=== PATIENT | female | born 2000 | race Caucasian/White ===

== ENCOUNTER 2025-08-16 09:11 | Emergency (ER) | payer OTHER, SELFPAY ==
[2025-08-16 09:27] VITALS: BP 114/77; PULSE 93; RESP 16; TEMP 36.7; O2SAT 100
--- NOTE | 2025-08-16 09:38 | ED_ITS ---
HPI - Nausea/Vomiting/Diarrhea General Chief complaint: Nausea/Vomiting/Diarrhea Stated complaint: Fever, congestion, V/D Time Seen by Provider: 08/16/25 09:38 Source: patient, RN notes reviewed and old records reviewed Mode of arrival: ambulatory Limitations: no limitations History of Present Illness HPI Narrative: 24 year old female who presents to [facility] care with complaints of Related Data Home Medications ?Medication ?Instructions ?Recorded ?Confirmed ?Last Taken ?Type escitalopram oxalate .ROUTE 08/16/25 Unknown His tory insulin pump cart,auto,BT,G6/7 08/16/25 08/16/25 Unkn own History (Omnipod 5 G6-G7 Pods (Gen 5) subcutaneous cartridge) Allergies Allergy/AdvReac Type Severity Reaction Status Date / Time acetaminophen (From Tylenol) Allergy Unknown Unknown Verified 08/16/25 09:32 fentanyl Allergy Unknown Unknown Verified 08/16/25 09:32 latex Allergy Unknown Unknown Verified 08/16/25 09:32 Course Vital Signs Vital signs: Vital Signs Temperature 36.7 C 08/16/25 09:27 Pulse Rate 93 08/16/25 09:27 Respiratory Rate 16 08/16/25 09:27 Blood Pressure 114/77 08/16/25 09:27 Pulse Oximetry 100 08/16/25 09:27 Oxygen Delivery Room Air 08/16/25 09:27 Temperature 36.7 C 08/16/25 09:27 Pulse Rate 93 08/16/25 09:27 Respiratory Rate 16 08/16/25 09:27 Blood Pressure 114/77 08/16/25 09:27 Pulse Oximetry 100 08/16/25 09:27 Oxygen Delivery Room Air 08/16/25 09:27 Discharge Plan Discharge Patient Language: Central African Prescriptions: No Action (DME) Omnipod 5 G6-G7 Pods (Gen 5) Cartridge SUBCUT escitalopram oxalate [Lexapro] .ROUTE Follow-up/Referrals: UNKNOWN,DOCTOR [Primary Care Provider]
--- NOTE | 2025-08-16 09:41 | ED_ITS ---
HPI - Nausea/Vomiting/Diarrhea General Chief complaint: Nausea/Vomiting/Diarrhea Stated complaint: Fever, congestion, V/D Time Seen by Provider: 08/16/25 09:38 Source: patient, RN notes reviewed and old records reviewed Mode of arrival: ambulatory Limitations: no limitations History of Present Illness HPI Narrative: 24 year old female who presents to [facility] care with complaints of nausea, vomiting, and diarrhea yesterday and feeling congested with some low grade fevers. Patient reports that she had her flu shot 2 days ago. She has been taking Advil cold and flu. She reports that her highest temp noted has been 100.6F. Patient is Type 1 diabetic and is on insulin pump and has continuous monitor for glucose readings, denies any low or high readings. Patient reports no abdominal pain except for crampy feeling when has diarrhea. Patient also has Hemorrhagic Hepatocellular Adenometrosis (HCS) which has required 3 liver surgeries in the past.Patient reports that she has been able to keep some water down today no food. MD elicited complaint: vomiting and diarrhea Pertinent past history: other (Type ! diabetic, (HCS)) Onset (ago): day(s) (since yesterday) Description of vomiting: food contents and watery Description of diarrhea: watery Associated nausea: Yes Associated abdominal pain: No Treatment prior to arrival: other (advil cold and flu) Related Data Home Medications ?Medication ?Instructions ?Recorded ?Confirmed ?Last Taken ?Type escitalopram oxalate .ROUTE 08/16/25 Unknown His tory insulin pump cart,auto,BT,G6/7 08/16/25 08/16/25 Unkn own History (Omnipod 5 G6-G7 Pods (Gen 5) subcutaneous cartridge) Allergies Allergy/AdvReac Type Severity Reaction Status Date / Time acetaminophen (From Tylenol) Allergy Unknown Unknown Verified 08/16/25 09:32 fentanyl Allergy Unknown Unknown Verified 08/16/25 09:32 latex Allergy Unknown Unknown Verified 08/16/25 09:32 Review of Systems Review of Systems: CONSTITUTIONAL: Reports low grade fever, chills, or sweats. EYES: Denies visual changes, redness, or discharge. ENT: reports rhinorrhea, congestion, no sore throat, or otalgia. CARDIOVASCULAR: Denies chest pain, palpitations, or edema. RESPIRATORY: Denies cough or dyspnea. GASTROINTESTINAL: Denies abdominal pain,positive for nausea, vomiting, or diarrhea. GENITOURINARY: Denies dysuria or hematuria. SKIN: Denies rash or itching. MUSCULOSKELETAL: Denies back pain, joint pain, or myalgia. NEUROLOGIC: Denies headache, numbness, or weakness. PSYCHIATRIC: Reports history of anxiety or depression. All systems reviewed & are unremarkable except as noted in HPI and below PMFSH Past Medical History Medical History (Updated 08/17/25 @ 07:45 by Sherice Boland APRN) Liver disease Hemorrhagic Hepatocellular Adenometrosis Endometriosis Anxiety and depression Diabetes mellitus Surgical History Surgical History (Updated 08/17/25 @ 07:46 by Sherice Boland APRN) History of surgery of liver HCS has had 3 liver surgeries H/O: hysterectomy Social History Social History (Updated 08/17/25 @ 07:42 by Sherice Boland APRN) Alcohol intake: never Substance use: never Living arrangements: with family Additional occupation/education comments: 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 There is no relevant family history pertinent to the presenting complaint Exam Narrative: GENERAL: ill-appearing, well-nourished, and in no acute distress. HEAD: Normocephalic, atraumatic. EYES: PERRLA and EOMI. ENT: Nares clear, clear rhinorrhea no epistaxis. Mucous membranes moist.TM normal with no redness, Throat pink with no exudate or swelling, post nasal drainage noted NECK: Supple. no lymphadenopathy CHEST: Clear to auscultation. No respiratory distress.no acute cough noted SAO2 100% on room air HEART: Regular rate and rhythm. No murmur heard. Normal peripheral pulses. ABDOMEN: Soft, nontender to palpation, no McBurney point tenderness, nondistended, hyper active bowel sounds. EXTREMITIES: Normal range of motion. No edema. SKIN: Warm, dry, no rash. NEURO: No focal deficits. Alert and oriented x3. Course Course Emergency Course: Patient is aware of diagnosis, understands and agrees to treatment plan.? Anticipatory guidance given.? Patient agrees to follow-up as directed and is aware of reasons to seek care at the emergency department. Portions of this record may have been created with voice recognition software Level of Care: [facility] Visit Vital Signs Vital signs: Vital Signs Temperature 36.7 C 08/16/25 09:27 Pulse Rate 93 08/16/25 09:27 Respiratory Rate 16 08/16/25 09:27 Blood Pressure 114/77 08/16/25 09:27 Pulse Oximetry 100 08/16/25 09:27 Oxygen Delivery Room Air 08/16/25 09:27 Temperature 36.7 C 08/16/25 09:27 Pulse Rate 93 08/16/25 09:27 Respiratory Rate 16 08/16/25 09:27 Blood Pressure 114/77 08/16/25 09:27 Pulse Oximetry 100 08/16/25 09:27 Oxygen Delivery Room Air 08/16/25 09:27 Reviewed MDM - Nausea/Vomiting/Diarrhea Differential Diagnosis Differential diagnosis: Likely gastroenteritis, dehydration and other (URI, nausea vomiting and diarrhea) Medical Records Attestation: I reviewed the patient's medical records. Lab Data Attestation: I reviewed the patient's lab results. Lab results narrative: Covid antigen negative, Influenza A&B negative Labs: Lab Results 08/16/25 Range/Units 09:45 POC Influenza A Ag Negative (Negative) POC Influenza B Ag Negative (Negative) POC SARS CoV-2 Ag Negative (Negative) reviewed Critical Care Time Critical Care Time Critical Care Time: No Discharge Plan Discharge Clinical Impression: Gastroenteritis Patient Disposition: Home Condition: Stable Instructions: Antibiotic Form, Gastroenteritis (ED) Additional Instructions: Clear liquids for the next 8-10 hours, then advance to a bland diet as tolerated A bland diet can consist of--BRAT diet which is bananas, rice, applesauce, and toast Avoid fried, greasy, fatty, fried foods Avoid caffeine, nicotine, and alcohol Return to your regular diet in the next 3-4 days Medication as directed for nausea and vomiting Sometimes ibuprofen/Aleve can cause increased stomach upset Jveg-dvk-raunpny Imodium if develop diarrhea Follow-up with her PCP if continued problems or uncontrolled pain If your symptoms persist, change or worsen significantly before you can contact your personal physician then please, without delay, go to the emergency department for further evaluation. Follow-up with PCP in 7-10 days or sooner if needed if you develop increased abdominal pain, increased nausea and vomiting, or concerns for dehydration go directly to the ER. Patient Language: Serbian Prescriptions: New ondansetron 4 mg tablet,disintegrating 4 mg PO Q6H PRN (Reason: nausea and vomiting) Qty: 20 0RF No Action (DME) Omnipod 5 G6-G7 Pods (Gen 5) Cartridge SUBCUT escitalopram oxalate [Lexapro] .ROUTE Follow-up/Referrals: UNKNOWN,DOCTOR [Primary Care Provider] Stand Alone Forms: Work/School Release IP Time of Disposition: 09:58 Quality Dena Coma Scale Eyes: Open Verbal: Oriented and Alert Motor: Follows Commands Dena Coma Total Score: 15
[2025-08-16 09:46] LABS: EDCOVIDSCREEN Negative (Negative); EDINFLUASCREEN Negative (Negative); EDINFLUBSCREEN Negative (Negative)
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
--- OUTSIDE RECORDS SUMMARY | 2025-08-16 10:12 | XMS_ITS | Encounter Summary ---
Author Organization [facility] Address [address] [place] [address] Care Team Providers Care Printing Assistant Name Role Phone Herlinda Simpson MD Primary Care Provider [phone] Reason for Visit * Reason Onset Date Comments MEDICATION REFILL 12/29/2012 Encounter Details Date Type Department Care Team (Late st Contact Info) Description 12/29/2012 Refill [facility] Pediatrics - Diabetes Mgmt [address] [place] [id number] Yasmany Vyas MD [address] [place] [id number] MEDICATION REFILL Social History Tobacco Use Types Packs/Day Years Used Date Smoking Tobacco: Never Comments No Sex and Gender Information Value Date Recorded Sex Assigned at Not on file Legal Sex Female 11:58 AM COLLAR POINTER Gender Identity Not on file Sexual Orientation Not on file documented as of this encounter Plan of Treatment Not on file documented as of this encounter Visit Diagnoses Diagnosis Diabetes mellitus type I (HCC)- Primary Type I (juvenile type) diabetes mellitus without mention of complication, not stated as uncontrolled documented in this encounter Care Teams Printing Assistant Relationship Specialty Start Date End Date Herlinda Simpson MD [address] [facility] [address] [place] [address] PCP - General 04/18/11 01/26/25 documented as of this encounter
--- OUTSIDE RECORDS SUMMARY | 2025-08-16 10:12 | XMS_ITS | Encounter Summary ---
Author Organization [facility] Address [address] [place] [address] Phone Care Team Providers Care Merchandise Collector Name Role Phone Herlinda Simpson MD Primary Care Provider No, Physician Primary Care Provider Unknown, Notinfile Primary Care Provider Unavail able Unknown, Notinfile Primary Care Provider Unavail able No, Physician Unavailable Georgette Coelho RN Unavailable [phone] Christine Chilel RN Unavailable [phone] Aby Wbeer MD Primary Care Provider [phone] Sofia Malagon NP Primary Care Provider Priya Boykin NP Unavailable Deo Gallegos MD Unavailable [phone] Encounter Details Date Type Department Care Team (Latest Contact Info) Description 03/31/2017 Orders Only [facility] CONVERSION Scanning, Provider Social History Tobacco Use Types Packs/Day Years Used Date Smoking Tobacco: Never Assessed Comments Unknown Sex and Gender Information Value Date Recorded Sex Assigned at Not on file Legal Sex Female 8:20 AM HYPERBARIC TECHNOLOGIST Gender Identity Not on file Sexual Orientation Not on file documented as of this encounter Plan of Treatment Not on file documented as of this encounter Procedures Procedure Name Priority Date/Time Associated Diagnosis Comments OBSTETRIC/GYNECOLOGY ULTRASONOGRAPHY REPORT 03/31/2017 1:17 PM CDT documented in this encounter Results * OBSTETRIC/GYNECOLOGY ULTRASONOGRAPHY REPORT (03/31/2017 1:17 PM CDT) Anatomical Region Laterality Modality Ultrasound us Provider Scanning IMG OB US PROCEDURES Final Res ult documented in this encounter Visit Diagnoses Not on filedocumented in this encounter Care Teams Merchandise Collector Relationship Specialty Start Date End Date Herlinda Simpson MD [address] [address] PCP - General 11/26/16 04/27/19 No, Physician PCP - General 04/28/19 05/18/19 Unknown, Notinfile PCP - General 05/19/19 05/19/19 Unknown, Notinfile PCP - General 05/20/19 02/17/20 Aby Weber MD [address] [place] [address] PCP - General Family Medicine 02/18/20 05/30/23 Sofia Malagon NP [address] [place] [address] PCP - General Nurse Practitioner 05/31/23 No, Physician 05/19/19 Georgette Coelho RN [address] [address] Name Plate Stamper 03/13/18 Christine Chilel RN [address] [address] Name Plate Stamper 11/09/18 9 Priya Boykin NP [address] [place] [address] Nurse Practitioner Nurse Practitioner 12/08/23 Deo Gallegos MD [address] [place] [address] Referring Physician Internal Medicine 12/08/23 documented as of this encounter
--- OUTSIDE RECORDS SUMMARY | 2025-08-16 10:12 | XMS_ITS | Clinical Summary ---
Author Organization [facility] Address [address] [place] [address] Care Team Providers Care Plastics Worker Name Role Phone Unavailable Primary Care Provider Unavailabl e Source Comments [facility],non-owned Affiliates and Associated Physician Practices is amultiple site organization consisting of ambulatory clinics and hospital sitesin [place], [place], [place] and [place]. This disclosure is being madepursuant to the Care Everywhere program and may not contain all information available regarding this patient. Last updated 18.[facility] Allergies No known active allergies Medications * Be aware that medications may not be up to date on this document. Alwaysverify current medications with the patient. injection device-insulin (HUMAPEN LUXURA HD) device Use to inject insulin 4-6 times daily. 1 Device 0 1 Active lancets (FREESTYLE LANCETS) MISC Use 5-9 Each once daily. 200 Each 1 Active Insulin Pen Needle (BD PEN NEEDLE HUSSEIN U/F) 32G X 4 MM MISC Use 4-6 Each once daily. 200 Each 11 1 Active LANTUS SOLOSTAR PEN injection Inject 10 Units subcutaneously once daily. Or as directed 1 Box 5 4 Active Insulin Pen Needle (BD PEN NEEDLE HUSSEIN U/F) 32G X 4 MM MISC Use 4-6 Each once daily. 200 Each 11 4 Active Blood Glucose Monitoring Suppl (ONETOUCH VERIO IQ SYSTEM) W/DEVICE KIT Use 1 Device as directed. Use to test blood sugar 5-9 times daily 1 Kit 1 4 Active ONETOUCH DELICA LANCETS 33G MISC Use 5-9 Each once daily. 200 Each 11 4 Active blood glucose (ONETOUCH VERIO) test strip Test blood sugar 5-9 times daily 200 Strip 11 4 Active ibuprofen (MOTRIN) 600 MG tablet Take 1 Tab by mouth every 8 hours as needed for Pain. 500 Tab 1 5 Active oxyCODONE, immediate release, (ROXICODONE) 5 MG tablet Take 1 Tab by mouth every 4 hours as needed for Pain. 5 Tab 0 5 Active glyBURIDE (DIABETA; MICRONASE) 1.25 MG quarter tab Take 5 mg by mouth daily with breakfast Active Active Problems Problem Noted Date Diagnosed Date Adenoma of liver 04/12/2014 Assessment & Plan (05/11/2014 12:14 AM CDT): Assessment: Shereen is a 13 y.o. female with a h/o adenomas of the liver s/p arterial embolization. Doing well after procedure Plan: Admit to GI Pain control Motrin and Oxycodone Regular diet Vitals q 8 Intake and output Liver masses 12/28/2013 Assessment & Plan (04/12/2014 2:22 PM CDT): Assessment: Shereen Dillon is a 13 y.o. female with hepatic adenomatosis s/p mass resection in 12/2013 now with increasing size of masses. Plan: Proceed with embolization by Dr Christina as planned. Admit to purple after procedure. Assessment & Plan (12/29/2013 12:39 AM CDT): Assessment: Plan: Assessment & Plan (12/28/2013 8:33 PM CDT): Assessment: 13F c multiple liver masses throughout the liver with a ddx including primary HCC v. Metastatic disease v. Infectious v cystic v hemangioma. Likely HCC. Plan: - PET scan tomorrow. Glucose parameters are glucose <200 at time of test with no insuling being given within 4hrs of the test. The patient is to have this performed at [facility], and will need consent and transfer paperwork completed. - Transplant Team: Consulted for consideration of liver transplant. - Chemoradiologist: Consulted for consideration of possible interventions to shrink the tumor mass. - Will need serial LFT, CBC, PT/INR daily. If LFT start increasing then trend more frequently. - Heme/Onc consulted and appreciate recommendations - Surgery consulted and appreciate recommendations. - Pain management with morphine and oxycodone Assessment & Plan (12/28/2013 12:00 PM CDT): Assessment: 13F c multiple liver masses throughout the liver with a ddx including primary HCC v. Metastatic disease v. Infectious v cystic v hemangioma. Likely HCC. Plan: - PET scan tomorrow. Glucose parameters are glucose <200 at time of test with no insuling being given within 4hrs of the test. The patient is to have this performed at [facility], and will need consent and transfer paperwork completed. - Transplant Team: Consulted for consideration of liver transplant. - Chemoradiologist: Consulted for consideration of possible interventions to shrink the tumor mass. - Will need serial LFT, CBC, PT/INR daily. If LFT start increasing then trend more frequently. - Heme/Onc consulted and appreciate recommendations - Surgery consulted and appreciate recommendations. 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 Plan: --home Lantus 10 units qAM --home Humalog 1 unit for every 50 over 200 based on pre-meal checks --glucose checks qAC, qHS and 2AM Assessment & Plan (11/07/2014 11:19 AM POCKET SETTER): Assessment: LEXIE on Lantus and Humalog correction dose only. Plan: --home Lantus 10 units qAM --home Humalog 1 unit for every 50 over 200 based on pre-meal checks --glucose checks qAC, qHS and 2AM Assessment & Plan (05/11/2014 12:17 AM CDT): Plan: Continue home humalog Frequent blood glucose checks Assessment & Plan (02/21/2014 12:57 PM CDT): 1) continue all current doses 2) call as needed for blood sugar problems 3) return in [address] Machuca Assessment & Plan (12/29/2013 12:37 AM CDT): Assessment: Diabetes mellitus, diagnosed 3 years ago, cause uncertain. Suspect LEXIE. Off insulin x2 years. Plan: Endocrine consulting. Continue Lantus 10 Units daily, Humalog 1 Unit: 15 grams with SS 1 Unit: 50>200. Target BS 80-150. Assessment & Plan (12/28/2013 8:33 PM CDT): Assessment: 13 F c Uncontrolled IDDM type I Plan: - Endo consulted and appreciate recs - Lantus 10 units daily - On SSI - BS needs to be corrected before PET scan tomorrow as above. Assessment & Plan (12/28/2013 12:00 PM CDT): Assessment: 13 F c Uncontrolled IDDM type I Plan: - Endo consulted and appreciate recs - Lantus 10 units daily - On SSI - BS needs to be corrected before PET scan tomorrow as above. Assessment & Plan (05/04/2013 1:56 PM CDT): 1) begin 30-60 min of exercise daily 2) continue checking blood sugar twice daily 3) call with two consecutive numbers over 150 4) call with one number over 200 5) Check ketones if you vomit or if blood sugar is over 250 6) begin appeal process for LEXIE testing, Kina Bui PNP will contact you 7) return in 6 months for Loc Lowe Resolved Problems Problem Noted Date Diagnosed Date Resolved Date Abdominal Pain 11/07/2014 02/22/2015 Assessment & Plan (11/07/2014 2:28 PM POCKET SETTER): Assessment: 13 yo female with hepatocellular adenomas s/p resection and embolization and chronic RUQ pain managed with ibuprofen and diazepam, hospitalized due to acute onset LUQ and L flank pain. Diagnostic workup significant for hematuria (though specimen with numerous epithelial cells), nl CMP, large amount of retained stool, and recent abdominal MRI showing interval adenoma growth but no other abnormalities. Constipation is likely. Nephrolithiasis is also possible. Although pt is at risk for bleeding within the adenoma this would be unlikely to result in left sided pain. Malignant transformation and metastasis less likely with abdominal MRI 2w ago showing no abnormalities in other organs. General surgery and GI aware of pt's admission. Plan: --serial abdominal exams --miralax at fecal disimpaction dosing --repeat UA w/ clean specimen to re-eval for hematuria --mIVF, regular diet as tolerated --Zofran prn nausea --Nexium 20mg daily while with poor PO, consider PPI continuation at discharge d/t chronic NSAID use --one dose of IV Fentanyl now d/t increased pain; will evaluate need for additional doses as day progresses Assessment & Plan (11/07/2014 11:23 AM POCKET SETTER): Assessment: 13 yo female with hepatocellular adenomas and chronic RUQ pain, presenting with new LUQ and L flank pain. KUB negative for obstruction, UA dirty. DDx at this point includes constipation and nephrolithiasis. General surgery and GI aware of pt's admission. Plan: --previously ordered Miralax regimen completed; will monitor for stool and consider additional doses --repeat UA w/ clean specimen to re-eval for hematuria --mIVF, regular diet as tolerated --Zofran prn nausea --Nexium 20mg daily while with poor PO, consider PPI continuation at discharge d/t chronic NSAID use --one dose of IV Fentanyl now d/t increased pain; will evaluate need for additional doses as day progresses Assessment & Plan (11/07/2014 2:11 AM POCKET SETTER): Assessment: LUQ/L flank pain in setting of 1 month of constipation. Most likely related to constipation, as supported by KUB and palpable mass correlating w/ colon's splenic flexure. Ddx includes gastritis (pt is at risk given her poor PO intake recently and chronic NSAID use) vs obstruction/ileus (however obstr series and h/o flatus is reassuring against this) vs renal stone/renal colic (jaren given hematuria on UA though this was a dirty specimen) vs splenomegaly (?Splenic sequestration ?Hemolysis- although there is nothing known to pt patient at risk for this and she is currently afebrile. ?Mononucleosis- even w/ sore throat, URI sx, palpable mass in LUQ this is not consistent as she is afebrile, has no LAD and has normal white cell differential). 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 (LEXIE) 06/30/2014 06/30/2014 Family History Medical History Relation Name Comments Kidney Stones Father Diabetes Maternal Grandfather Diabetes Mother Diabetes Other 1 maternal aunts and uncles Kidney Problems Other 2 MGGM h/o nep hrectomy ?unk reason Relation Name Status Comments Father Maternal Grandfather Mother Other 1 Other 2 Social History Tobacco Use Types Packs/Day Years Used Date Smoking Tobacco: Never Smokeless Tobacco: Never Alcohol Use Standard Drinks/Week Comments No 0 (1 standard drink = 0.6 oz pur e alcohol) Comments No Sex and Gender Information Value Date Recorded Sex Assigned at Not on file Legal Sex Female 11:58 AM POCKET SETTER Gender Identity Not on file Sexual Orientation Not on file Last Filed Vital Signs Vital Sign Reading Time Taken Comments Blood Pressure 100/62 08/25/2019 4:45 PM POCKET SETTER Pulse 85 08/25/2019 4:45 PM POCKET SETTER Temperature 36.7 C (98.1 F) 08/25/2019 4:45 PM POCKET SETTER Respiratory Rate 16 08/25/2019 4:45 PM POCKET SETTER Oxygen Saturation 98% 08/25/2019 4:45 PM POCKET SETTER Inhaled Oxygen Concentration 100% 01/02/2014 1 :00 PM CDT Weight 56.7 kg (125 lb) 08/25/2019 4:45 PM POCKET SETTER Height 157.5 cm (5' 2) 08/25/2019 4:45 PM POCKET SETTER Body Mass Index 22.86 08/25/2019 4:45 PM POCKET SETTER Plan of Treatment Health Maintenance Due Date Last Done Comments HIV SCREENING 2014 HPV VACCINE (1 - 3-dose series) 2014 DIABETES-HGB A1C 12/28/2014 06/30/2014, 06/2014, 12/27/2013, Additional history exists DIABETES-FOOT EXAM WITH MONOFILAMENT 2017 DIABETES-SERUM CREATININE 11/08/20172014, 08/03/2014, 03/14/2014, Additional history exists DTAP/TDAP/TD VACCINES (1 - Tdap) 2018 HEPATITIS B VACCINE (1 of 3 - 19+ 3-dose series) 2018 CHLAMYDIA/GONORRHEA SCREENING 08/18/2019 08/18/2018 DEPRESSION SCREENING 10/13/2024 DIABETES - URINE PROTEIN SCREENING 10/13/2024 02/18/2014 COVID-19 VACCINE (1 - season) 2025 INFLUENZA VACCINE (#1) 2025 ZOSTER VACCINE (1 of 2) 2049 HEPATITIS C SCREENING Completed 12/27/2013 HIB VACCINE Aged Out No longer eligi ble based on patient's age to complete this topic MENINGOCOCCAL (Group B) VACCINE SHARED DECISION-MAKING Aged Out No longer eligible based on patient's age to complete this topic MENINGOCOCCAL GROUPS A/C/Y/W VACCINE Aged Out No longer eligible based on patient's age to complete this topic PNEUMOCOCCAL VACCINE Aged Out No long er eligible based on patient's age to complete this topic Procedures Procedure Name Priority Date/Time Associated Diagnosis Comments COMPREHENSIVE METABOLIC PANEL STAT 11/06/2014 10:30 PM POCKET SETTER HEMOGLOBIN A1C - POCT (IP) BEAKER Routine 06/30/2014 2:12 PM CDT MICROALB/CREAT RATIO URINE RANDOM PANEL Routine 02/18/2014 11:38 AM CDT Diabetes mellitus HEPATITIS SCREEN ACUTE STAT 4 4:41 PM CDT from Last 3 Months or Most Recently Relevant to Health Maintenance Results * (ABNORMAL) COMPREHENSIVE METABOLIC PANEL (11/06/2014 10:30 PM [facility]) Glucose 193(H) 70 - 105 mg/dL 11/06/2014 11:05 PM [facility] Sodium 137 136 - 145 mmol/L 11/06/2014 11:05 PM [facility] Potassium 3.8 3.5 - 5.1 mmol/L 11/06/2014 11:05 PM [facility] Chloride 104 98 - 107 mmol/L 11/06/2014 11:05 PM [facility] CO2 19(L) 20 - 28 mmol/L 11/06/2014 11:05 PM [facility] Calcium 10.00 8.92 - 10.32 mg/dL 11/06/2014 11:05 PM [facility] Anion Gap 14 5 - 20 mmol/L 11/06/2014 11:05 PM [facility] BUN 8.8 6.1 - 21.0 mg/dL 11/06/2014 11:05 PM [facility] Creatinine 0.42(L) 0.62 - 1.00 mg/dL 11/06/2014 11:05 PM [facility] eGFR by MDRD mL/min/1. 73m2 11/06/2014 11:05 PM [facility] Comment:eGFR calculations ar e not performed for children under 18 years old. eGFR by MDRD mL/min/1. 73m2 11/06/2014 11:05 PM [facility] Comment:eGFR calculations ar e not performed for children under 18 years old. Alkaline Phosphatase 118 100 - 390 U/L 11/06/2014 11:05 PM [facility] ALT 32 8 - 65 U/L 11/06/2014 11:05 PM [facility] AST 20 3 - 35 U/L 11/06/2014 11:05 PM [facility] Protein Total 7.7 6.4 - 8.5 gm/dL 11/06/2014 11:05 PM [facility] Albumin 4.5 3.3 - 5.0 gm/dL 11/06/2014 11:05 PM [facility] Bilirubin Total 0.4 0.3 - 1.2 mg/dL 11/06/2014 11:05 PM [facility] Blood BLOOD SPECIMEN / Unknown 11/06/2014 10:30 PM POCKET SETTER 11/06/2014 10:46 PM [facility] Bhanu Sanchez MD LAB - CHEMISTRY ORDERABLES Priscilla l Result Performing Organization Address [facility]/ZIP Co de Phone Number [facility] [address] [place] [address] * (ABNORMAL) HEMOGLOBIN A1C - POCT (IP) BEAKER (06/30/2014 2:12 PM CDT) Hemoglobin A1c POCT 7.4(A) 3.4 - 6.1 % [facility] QC Verified Yes Yes [facility] Blood specimen (specimen) BLOOD SPECIMEN / Unknown 06/30/2014 2:12 PM CDT Trish Machuca MD LAB - POINT OF CARE ORDER DIANA Final Result Performing Organization Address [facility] Co de Phone Number [facility] [address] * MICROALB/CREAT RATIO URINE RANDOM PANEL (02/18/2014 11:38 AM CDT) Creatinine Urine 125.00 mg/dL 02/19/20 14 12:41 PM CDT [facility] Microalbumin Urine 0.5 <1.7 mg/dL 02/18/2014 12:41 PM CDT [facility] Microalbumin/Crea tinine Ratio 4 <30 mg/g 02/18/2014 12:41 PM CDT [facility] Urine URINE / Unknown 02/18/2014 1 1:38 AM CDT 02/18/2014 11:52 AM CDT us Peng Lowe MACHINE SHOP REPAIR TECHNICIAN-METAL PAINTER LAB - URINE CHEMISTRY O RDERABLES Final Result Performing Organization Address [facility] Co de Phone Number [facility] [address] [place] [address] * HEPATITIS SCREEN ACUTE (12/27/2013 4:41 PM CDT) HAV Antibody IgM Non Reactive Non Reactive 12/28/2013 8:34 AM CDT [facility] HBsAg Non Reactive Non Reactive 12/28/2013 8:34 AM CDT [facility] HBsAb Non Reactive Non Reactive 12/28/2013 8:34 AM CDT [facility] HBc Antibody IgM Non Reactive Non Reactive 12/28/2013 8:34 AM CDT [facility] HCV Antibody Screen Non Reactive Non Reactive 12/28/2013 8:34 AM CDT [facility] Blood BLOOD SPECIMEN / Unknown 12/27/2013 4:41 PM CDT 12/27/2013 5:04 PM CDT Narrative [facility] - 12/28/2013 8:34 AM CDT Nonreactive - Antibodies to HCV were not detected, result does not exclude early acute HCV infection. us Shon Condon MD LAB - CHEMISTRY ORDERABLES Final Result Performing Organization Address [facility] de Phone Number [facility] [address] [place] [address] from Last 3 Months or Most Recently Relevant to Health Maintenance Insurance [employer] [facility] Address: [place] [address] [employer]TH [facility], [facility], [facility]
--- OUTSIDE RECORDS SUMMARY | 2025-08-16 10:12 | XMS_ITS | Clinical Summary ---
Author Organization [facility] Address [address] [place] [address] Phone Care Team Providers Care Rock Wool Insulator Name Role Phone Sofia Malagon APRN, STEFFEN Primary Care Pr ovider Allergies No known active allergies Medications ketorolac (TORADOL) 10 MG Tablet Take 1 Tab by mouth every 6 hours as needed for Mild or more severe pain. 20 Tab 08/18/2018 Active ibuprofen (MOTRIN) 600 MG Tablet Take 1 Tab by mouth every 8 hours. PRN PAIN 30 Tab 11/12/2018 Active Social History Tobacco Use Types Packs/Day Years Used Date Smoking Tobacco: Never Smokeless Tobacco: Never Tobacco Cessation:Counseling Given: Not Answered Alcohol Use Standard Drinks/Week Comments No 0 (1 standard drink = 0.6 oz pur e alcohol) Comments No Sex and Gender Information Value Date Recorded Sex Assigned at Not on file Legal Sex Female 5:35 PM CIGAR SORTER Gender Identity Not on file Sexual Orientation Not on file Last Filed Vital Signs Vital Sign Reading Time Taken Comments Blood Pressure 99/61 02/29/2024 2:30 AM CDT Pulse 97 02/29/2024 2:30 AM CDT Temperature 37.1 C (98.8 F) 02/28/2024 10:34 PM CDT Respiratory Rate 23 02/29/2024 2:30 AM CDT Oxygen Saturation 100% 02/29/2024 2:30 AM CDT Inhaled Oxygen Concentration - - Weight 58.2 kg (128 lb 3.2 oz) 02/28/2024 10:34 PM CDT Height 157.5 cm (5' 2) 02/28/2024 10:34 PM CDT Body Mass Index 23.45 02/28/2024 10:34 PM CDT Plan of Treatment Health Maintenance Due Date Last Done Comments Hepatitis C Virus (HCV) Screening 1999 Human Papillomavirus (HPV) Immunization (1 - 3-dose series) 2014 Hepatitis B Immunization (1 of 3 - 19+ 3-dose series) 2018 Pap Smear 2020 Influenza Immunization (#1) 2025 092 , 11/18/2016 SARS-COV-2 Immunization ( season) 2025 Respiratory Syncytial Virus (RSV) Immunization (Adult) (1 - 1-dose 75+ series) 2074 DTaP/Tdap/Td Immunization Discontinued 2020, 04/14/2017 TdaP Immunization Completed 06/21/2021, 04/14/2017 Meningococcal Immunization (ACWY) Aged Out No longer eligible based on patient's age to complete this topic Pneumococcal Immunization Combined Aged Out No longer eligible based on patient's age to complete this topic Rotavirus Immunization Aged Out No lo nger eligible based on patient's age to complete this topic [place] [address] [place] [address] Care Teams Rock Wool Insulator Relationship Specialty Start Date End Date Sofia Malagon APRN, HOSPITAL AIDE PCP - General Advanced Practice Nurse 02/28/24
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
== END 2025-08-16 10:04 | disposition home or self-care (01) ==
PROVIDERS: Emergency Provider Registered Nurse
DX: K52.9 Noninfective gastroenteritis and colitis, unspecified (principal); E10.9 Type 1 diabetes mellitus without complications; Z79.4 Long term (current) use of insulin; Z20.822 Contact with and (suspected) exposure to COVID-19
CPT/HCPCS: 87426; 87804; 99203; G0463